=== PATIENT | male | born 1960 | race Caucasian/White ===

== ENCOUNTER 2017-09-18 11:53 | Inpatient (IN) | payer OTHER ==
[~2017-09-18] VITALS: Ht 182.9 cm; Wt 68.5 kg
[2017-09-18 11:55] VITALS: BP 133/89
[2017-09-18] MEDS ORDERED: cefTRIAXone 1,000 MG in DEXT 5% MINI-BAG PLUS 50 ML IV ONE (12:15)
[2017-09-18] MEDS ORDERED: ALBUTEROL 0.083% 2.5 MG/3 ML NEBU INH ONE (12:15)
[2017-09-18] MEDS ORDERED: IPRATROPIUM 0.02% 0.5 MG/2.5 ML NEBU INH ONE (12:15)
[2017-09-18] MEDS ORDERED: LEVOFLOXACIN 500 MG/D5W PREMIX 100 ML IV ONE (12:15)
[2017-09-18] MEDS ORDERED: diphenhydrAMINE 50 MG/ML VIAL IVP ONE (12:15)
[2017-09-18] MEDS ORDERED: DEXAMETHASONE 10 MG/ML VIAL IVP ONE (12:15)
[2017-09-18] MEDS ORDERED: cefTRIAXone 1,000 MG VIAL ONE (12:33)
[2017-09-18] MEDS: NACL 0.9% 2,000 ML IV SCH ×2 (12:43→17:32)
[2017-09-18 12:47] LABS: BASOPHILS % (AUTO) 0.3 % (0.0-2.0); EOSINOPHILS # (AUTO) 0.1 K/uL (0-0.4); HEMATOCRIT 40.9 % (36-52); HEMOGLOBIN 13.7 g/dL (12.0-18.0); LYMPHOCYTES # (AUTO) 2.3 K/uL (2.0-11.5); LYMPHOCYTES % (AUTO) 20.2 % (20.5-51.1); MEAN CORPUSCULAR HEMOGLOBIN 32 pg (27-31); MEAN CORPUSCULAR HGB CONC 34 g/dL (33-37); MEAN CORPUSCULAR VOLUME 95.1 fL (80-94); MONOCYTES % (AUTO) 8.6 % (1.7-9.3); NEUTROPHILS # (AUTO) 8.1 K/uL (1.8-7.7); NEUTROPHILS % (AUTO) 69.9 % (42.2-75.2); PLATELET COUNT (AUTO) 152 K/uL (140-450); RED CELL DISTRIBUTION WIDTH 12.8 % (11.6-13.7); WHITE BLOOD COUNT (AUTO) 11.5 K/uL (4.8-10.8)
[2017-09-18 13:05] LABS: ANION GAP 15.3 (8-16); CARBON DIOXIDE 24.4 mmol/L (21-32); POTASSIUM 3.7 mmol/L (3.5-5.1)
[2017-09-18 13:10] LABS: ALBUMIN 3.4 g/dL (3.4-5.0); TOTAL BILIRUBIN 0.4 mg/dL (0.0-1.0)
[2017-09-18 13:13] LABS: PROTHROMBIN TIME 11.4 secs (10.8-13.4)
[2017-09-18 14:47] LABS: APPEARANCE,URINE CLEAR (CLEAR); BILIRUBIN,URINE NEGATIVE (NEGATIVE); BLOOD, URINE NEGATIVE (NEGATIVE); COLOR,URINE YELLOW (YELLOW); LEUKOCYTE ESTERASE ,URINE NEGATIVE (NEGATIVE); NITRITE, URINE NEGATIVE (NEGATIVE); UGLUCOSE NEGATIVE (NEGATIVE)
[2017-09-18] MEDS ORDERED: ACETAMINOPHEN 325 MG TAB PO PRN (15:45)
[2017-09-18] MEDS ORDERED: ALBUTEROL 0.083% 2.5 MG/3 ML NEBU IH PRN (15:45)
[2017-09-18] MEDS ORDERED: ONDANSETRON 4 MG/2 ML VIAL IVP PRN (15:45)
[2017-09-18] MEDS ORDERED: LORazepam 2 MG/ML VIAL IVP PRN (15:45)
[2017-09-18] MEDS ORDERED: HYDROcodone/APAP 5/325 MG 1 TAB TAB PO PRN (15:45)
[2017-09-18 16:20] VITALS: BP 110/69
[2017-09-18] MEDS: IPRATROPIUM 0.02% 0.5 MG/2.5 ML NEBU IH SCH ×2 (19:00→23:54)
[2017-09-18 20:00] VITALS: BP 97/63
[2017-09-18] MEDS: methylPREDNISolone SS 125 MG/2 ML VIAL IVP SCH (21:10)
[2017-09-18 21:58] LABS: CREATINE KINASE MB 0.3 ng/mL (0-3.6)
[2017-09-19] VITALS: BP 101/59
[2017-09-19] MEDS: methylPREDNISolone SS 125 MG/2 ML VIAL IVP SCH (04:46)
[2017-09-19 05:46] LABS: HEMATOCRIT 39.6 % (36-52); HEMOGLOBIN 13.3 g/dL (12.0-18.0); LYMPHOCYTES % (AUTO) 9.6 % (20.5-51.1); MEAN CORPUSCULAR HEMOGLOBIN 32 pg (27-31); MEAN CORPUSCULAR HGB CONC 34 g/dL (33-37); MEAN CORPUSCULAR VOLUME 95.5 fL (80-94); MONOCYTES # (AUTO) 0.2 K/uL (0.8-1.0); MONOCYTES % (AUTO) 1.9 % (1.7-9.3); NEUTROPHILS # (AUTO) 8.8 K/uL (1.8-7.7); NEUTROPHILS % (AUTO) 88.5 % (42.2-75.2); PLATELET COUNT (AUTO) 155 K/uL (140-450); RED BLOOD CELL COUNT(AUTO) 4.15 MIL/uL (4.20-6.10); RED CELL DISTRIBUTION WIDTH 12.6 % (11.6-13.7); WHITE BLOOD COUNT (AUTO) 9.9 K/uL (4.8-10.8)
[2017-09-19 06:11] LABS: ANION GAP 14.9 (8-16); CARBON DIOXIDE 23.7 mmol/L (21-32); CREATININE 0.9 mg/dL (0.7-1.3); POTASSIUM 4.6 mmol/L (3.5-5.1)
[2017-09-19] MEDS: IPRATROPIUM 0.02% 0.5 MG/2.5 ML NEBU IH SCH (06:29)
[2017-09-19 06:39] LABS: CREATINE KINASE MB 0.3 ng/mL (0-3.6)
[2017-09-19 08:00] VITALS: BP 127/79
[2017-09-19] MEDS ORDERED: ASPIRIN 81 MG TAB.CHEW PO SCH (09:00)
[2017-09-19] MEDS ORDERED: LEVO750T2 PO (10:02)
[2017-09-19] MEDS ORDERED: METH4TAB3 PO (10:04)
[2017-09-19] MEDS ORDERED: LEVOFLOXACIN 750 MG/D5W PREMIX 150 ML IV SCH (13:00)
== END 2017-09-19 11:30 | disposition home or self-care (01) | DRG 133 ==
LOC: MED 11:53 → MTU 15:49
PROVIDERS: ADMIT Hospitalist; ATTEND Hospitalist
DX: J96.20 Acute and chronic respiratory failure, unspecified whether with hypoxia or hypercapnia (principal); J18.9 Pneumonia, unspecified organism; E87.1 Hypo-osmolality and hyponatremia; J44.0 Chronic obstructive pulmonary disease with (acute) lower respiratory infection; J44.1 Chronic obstructive pulmonary disease with (acute) exacerbation; E83.42 Hypomagnesemia; E83.51 Hypocalcemia; F17.210 Nicotine dependence, cigarettes, uncomplicated
CPT/HCPCS: 36415; 36600; 71045; 80048; 80053; 81003; 82550; 82553; 82803; 83605; 83735; 83880; 84484; 85025; 85610; 85730; 87040; 87081; 87086; 93005; 94640; 96361; 96365; 96375; 99285; J0696; J1100; J1200; J1956; J2930; J7030; J7613; J7644; Q0092

== ENCOUNTER 2018-05-06 19:37 | Emergency (ER) | payer OTHER ==
[~2018-05-06] VITALS: Ht 182.9 cm; Wt 67.4 kg
[~2018-05-06 19:37] MED LIST: LEVO750T2 PO; METH4TAB3 PO
[2018-05-06 20:10] VITALS: BP 120/80
--- NOTE | 2018-05-06 20:18 | NUR ---
PT AMBULATED TO THE RESTROOM AND SENT [facility]
--- NOTE | 2018-05-06 23:03 | NUR ---
230---PATIENT LEFT WITHOUT BEING SEEN BY DR. BRYANT. NO FURTHER CARE PROVIDED FOR PATIENT. 2307---2ND CALL NO ANSWER. 2313---3RD CALL NO ANSWER.
== END 2018-05-06 23:03 | disposition left against medical advice (07) ==
LOC: MED 19:37
DX: R42 Dizziness and giddiness (principal); Z53.21 Procedure and treatment not carried out due to patient leaving prior to being seen by health care provider